=== PATIENT | male | born 1980 | race Caucasian/White ===

== ENCOUNTER 2016-09-13 14:37 | Outpatient (CLI) ==
[2016-09-13 15:12] LABS: BASOPHILS % (AUTO) 0.4 % (0.0-3.0); EOSINOPHILS # (AUTO) 0.2 K/ul (0.0-0.7); EOSINOPHILS % (AUTO) 2.2 % (0.0-7.0); HEMATOCRIT 45.8 % (42.0-52.0); HEMOGLOBIN 16.4 g/dl (14.0-18.0); IMMATURE GRANULOCYTE % (AUTO) 0.5 % (0.0-5.0); LYMPHOCYTES # (AUTO) 1.7 K/uL (0.60-3.4); LYMPHOCYTES % (AUTO) 21.4 (10.0-50.0); MEAN CORPUSCULAR HEMOGLOBIN 30.4 pg (27.0-31.0); MEAN CORPUSCULAR HGB CONC 35.8 (31.8-35.4); MONOCYTES # (AUTO) 0.9 K/uL (0.4-2.0); MONOCYTES % (AUTO) 11.5 (0-10); PLATELET COUNT 212 10^3/uL (140-440); RED BLOOD COUNT 5.39 10^6/ul (4.70-6.10); WHITE BLOOD COUNT 7.88 K/ul (4.2-10.2)
[2016-09-13 15:49] LABS: ALBUMIN 3.9 g/dL (3.4-5.0); ALBUMIN/GLOBULIN RATIO 0.91; ANION GAP 12.7; BILIRUBIN,TOTAL 0.53 mg/dL (0.00-1.20); BUN/CREATININE RATIO 13.82; CALCIUM 10.4 mg/dL (8.2-10.2); CREATININE 1.23 mg/dL (0.60-1.10); POTASSIUM 3.7 mmol/L (3.5-5.1); TOTAL PROTEIN 8.2 g/dL (6.4-8.2)
--- NOTE | 2016-09-13 16:39 | CT ---
EXAM: CT soft tissue neck with contrast. HISTORY: Right-sided jaw and mild swelling. COMPARISON: Cervical spine MRI 08/11/2013. TECHNIQUE: Multiple axial images of the neck were obtained following intravenous administration of 75 mL of Omnipaque 350, low osmolar. Images were reformatted in the sagittal and coronal plane. FINDINGS: Right submandibular gland is mildly enlarged and heterogeneous when compared to the contralateral si de. No discrete mass or calcifications identified. There is adjacent subcutaneous edema in the rig ht submandibular region with multiple adjacent lymph nodes, largest measuring up to 1 cm short axis on axial image 55 although this maintains a fatty hilum. Additional cervical lymph nodes are present with the largest measuring 1.2 cm short axis in the right neck, deep to the sternocleidomastoid mus zaria at the level of the angle of the mandible on axial image 47. Parotid glands are unremarkable. The pharyngeal soft tissues, epiglottis and laryngeal structures are unremarkable. Thyroid gland ap pears normal. Subglottic airway is normal in caliber. Vascular structures of the neck are patent. Lung apices are clear. Polyps or retention cyst noted within the right sphenoid and left maxillary sinuses with mild paranasal sinus mucosal thickening noted. There is leftward deviation of the nasa l septum. Globes and intraorbital structures are intact. IMPRESSION: Right submandibular sialoadenitis with adjacent cellulitis and probable reactive right cervical lymp hadenopathy.
--- NOTE | 2016-09-13 16:40 | CT ---
EXAM: CT BRAIN, COMPLETE HISTORY: Jaw swelling, right-sided TECHNIQUE: CT brain with and without intravenous contrast. 5-mm axial sections. Reformations were prepared. 75 ml Omnipaque FINDINGS: No comparison. Brain parenchyma demonstrates no significant abnormality. No suggestion of recent large vessel distribution ischemic infarction. No intracranial hemorrhage or acute subdu ral fluid collection. There is no acute ventriculomegaly, mass or mass effect. After intravenous contrast administration, there were no foci of abnormal contrast enhancement disco lukas. Cranium is intact. Mastoid air cells are aerated. The visualized paranasal sinuses reveal patchy a reas of opacity probably greater in the sphenoid sinuses. IMPRESSION: 1. No acute intracranial process or abnormal enhancing lesions. 2. Chronic sinusitis.
== END 2016-09-13 14:38 | disposition home or self-care (01) ==
LOC: RAD 14:37
PROVIDERS: ATTEND Nurse Practitioner Family
DX: R22.1 Localized swelling, mass and lump, neck (principal); M54.2 Cervicalgia; R22.0 Localized swelling, mass and lump, head; Z72.0 Tobacco use
CPT/HCPCS: 36415; 80053; 85025